=== PATIENT | female | born 1960 | race Caucasian/White ===

== ENCOUNTER 2024-06-29 17:06 | Emergency (ER) | payer MEDICARE, OTHER ==
[~2024-06-29] VITALS: Ht 149.9 cm; Wt 63.6 kg
[~2024-06-29 17:06] MED LIST: BONIVA1 MG/ML IV; CALCIUM CITRAT200 M2 PO; MASON NATURAL2000 IU PO; OMEGA-31 SGL PO; ONE-A-DAY WOME0.4 MG PO; VALIUM5 MG PO; VITAMINC1000TA PO
[2024-06-29 17:15] VITALS: TEMP 97.9
[2024-06-29 18:15] LABS: BASO % 0.8 % (0.0-2.0); EOS # 0.1 K/mm3 (0.0-0.7); EOS % 1.8 % (0.0-4.0); GRAN # 2.6 K/mm3 (1.4-6.5); GRAN % 51.3 % (42.2-75.2); HEMATOCRIT 42.8 % (37.0-47.0); HEMOGLOBIN 13.9 g/dl (12.5-16.0); LYMPH # 1.9 K/mm3 (1.2-3.4); LYMPH % 36.8 % (20.0-51.0); MEAN CELL VOLUME 93 fl (80.0-100.0); MEAN CORPUSCULAR HEMOGLOBIN 30 pg (27-31); MEAN CORPUSCULAR HGB CONC 33 g/dl (33.0-37.0); MEAN PLATELET VOLUME 10.7 fl (7.4-10.4); MONO # 0.5 K/mm3 (0.1-0.6); MONO % 9.1 % (1.7-9.3); PLATELET COUNT 234 K/mm3 (130-400); REDCELL DISTRIBUTION WIDTH-CV 14.1 % (11.5-14.5)
[2024-06-29] MEDS ORDERED: Morphine 4 MG/ML VIAL IV ONE (18:15)
[2024-06-29] MEDS ORDERED: NS 1,000 ML IV ONE (18:15)
[2024-06-29 18:28] LABS: URINE APPEARANCE CLEAR (CLEAR/HAZY); URINE BLOOD NEGATIVE (NEGATIVE); URINE COLOR YELLOW (YELLOW); URINE GLUCOSE NEGATIVE (NEGATIVE); URINE KETONE TRACE (NEGATIVE); URINE NITRATE NEGATIVE (NEGATIVE); URINE PROTEIN(semi-quant) NEGATIVE (NEGATIVE); URINE UROBILINOGEN 0.2 E.U/dL (0.2-1.0)
[2024-06-29] MEDS ORDERED: LORazepam 2 MG/ML 1 ML VIAL IV ONE (18:30)
[2024-06-29 18:31] LABS: COLLECTION METHOD CLEAN CATCH
[2024-06-29 18:31] LABS: BILIRUBIN,TOTAL 0.6 mg/dL (0.2-1.2); CALCIUM 8.9 mg/dL (8.4-10.2); CREATININE, serum 0.82 mg/dL (0.57-1.11); TOTAL PROTEIN 6.9 g/dl (6.2-8.1)
[2024-06-29] MEDS ORDERED: Iohexol 300 - 100 ML VIAL IV ONE (18:41)
[2024-06-29] MEDS ORDERED: NS 50 ML IV SCH (18:41)
[2024-06-29 20:15] VITALS: BP 123/75; PULSE 64
== END 2024-06-29 20:15 | disposition home or self-care (01) ==
LOC: COL.ER 17:06
PROVIDERS: Physician Assistant
DX: R10.30 Lower abdominal pain, unspecified (principal)
CPT/HCPCS: J2060; J7030; Q9967